=== PATIENT | male | born 2000 | race Caucasian/White ===

== ENCOUNTER 2019-08-01 18:08 | Emergency (ER) | payer OTHER ==
[2019-08-01 18:15] VITALS: BP 134/79
--- NOTE | 2019-08-01 18:22 | ER Document Report ---
ED Skin Rash/Insect Bite/Abscs - General Chief Complaint: Rash Stated Complaint: RASH ON GROIN AREA Time Seen by Provider: 08/01/19 18:17 Mode of Arrival: Ambulatory Information source: Patient Notes: 19-year-old male presented to ED for complaint of rash to his penis and groin. He states it started 2 days ago. He states it itches no pain at this time. He states he has had unprotected sex with multiple people. We have given him instructions on safe sex at this time. - HPI Patient complains to provider of: Skin rash/lesion Onset: Other - 2 days Onset/Duration: Gradual Quality of pain: No pain, Other - itchy Severity: None Pain Level: Denies Skin Character: Rash Quality of rash: Painful Identify cause: No Exacerbated by: Denies Relieved by: Denies Similar symptoms previously: No Recently seen / treated by doctor: No - Related Data Allergies/Adverse Reactions: iodine Allergy (Verified 08/01/19 18:17) Past Medical History - General Information source: Patient - Social History Smoking Status: Current Every Day Smoker Cigarette use (# per day): Yes - ppd Smoking Education Provided: Yes - 4 min Frequency of alcohol use: None 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 Family History: Reviewed & Not Pertinent Patient has suicidal ideation: No Patient has homicidal ideation: No - Past Medical History Cardiac Medical History: Reports: None Pulmonary Medical History: Reports: None EENT Medical History: Reports: None Neurological Medical History: Reports: None Endocrine Medical History: Reports: None Renal/ Medical History: Reports: None Malignancy Medical History: Reports None GI Medical History: Reports: None Musculoskeletal Medical History: Reports Hx Musculoskeletal Trauma Skin Medical History: Reports None Psychiatric Medical History: Reports: None Traumatic Medical History: Reports: Hx Fractures - Tibia right Infectious Medical History: Reports: None Past Surgical History: Reports: Hx Genitourinary Surgery - circumcision, Hx Orthopedic Surgery - Tibial fracture repair right, Other - Eye surgery - Immunizations Immunizations up to date: Yes Hx Diphtheria, Pertussis, Tetanus Vaccination: Yes Review of Systems - Review of Systems Constitutional: No symptoms reported EENT: No symptoms reported Cardiovascular: No symptoms reported Respiratory: No symptoms reported Gastrointestinal: No symptoms reported Genitourinary: No symptoms reported Male Genitourinary: No symptoms reported Musculoskeletal: No symptoms reported Skin: No symptoms reported, Rash - penis Hematologic/Lymphatic: No symptoms reported Neurological/Psychological: No symptoms reported Physical Exam - Vital signs Vitals: Temp Pulse Resp BP Pulse Ox 97.5 F 69 14 134/79 H 98 08/01/19 18:13 08/01/19 18:13 08/01/19 18:13 08/01/19 18:13 08/01/19 18:13 Interpretation: Normal - General General appearance: Appears well, Alert - HEENT Head: Normocephalic, Atraumatic Eyes: Normal Pupils: PERRL - Respiratory Respiratory status: No respiratory distress Chest status: Nontender Breath sounds: Normal Chest palpation: Normal - Cardiovascular Rhythm: Regular Heart sounds: Normal auscultation Murmur: No - Abdominal Inspection: Normal Distension: No distension Bowel sounds: Normal Tenderness: Nontender Organomegaly: No organomegaly - Back Back: Normal, Nontender - Extremities General upper extremity: Normal inspection, Nontender, Normal color, Normal ROM, Normal temperature General lower extremity: Normal inspection, Nontender, Normal color, Normal ROM, Normal temperature, Normal weight bearing. No: Sabra's sign - Neurological Neuro grossly intact: Yes Cognition: Normal Orientation: AAOx4 Charlemont Coma Scale Eye Opening: Spontaneous Charlemont Coma Scale Verbal: Oriented Michael Coma Scale Motor: Obeys Commands Michael Coma Scale Total: 15 Speech: Normal Motor strength normal: LUE, RUE, LLE, RLE Sensory: Normal - Psychological Associated symptoms: Normal affect, Normal mood - Skin Skin Temperature: Warm Skin Moisture: Dry Skin Color: Normal Skin irregularity: Rash Location of irregularity: Other - penis and groin Character of irregularity: Maculopapular Irregularity with: Other - itchy. negative: Tenderness Course - Re-evaluation Re-evalutation: 08/01/19 18:[address] Roberts, he recommended Lotrisone cream and follow-up with the health department. These instructions were given to the patient and patient was instructed to follow-up with his BAS or the health department. Patient verbalized understanding agreement with treatment plan. - Vital Signs Vital signs: Temp Pulse Resp BP Pulse Ox 97.5 F 69 14 134/79 H 98 08/01/19 18:18 08/01/19 18:13 08/01/19 18:18 08/01/19 18:13 08/01/19 18:18 Discharge - Discharge Clinical Impression: non painful rash to penis Condition: Stable Disposition: HOME, SELF-CARE Instructions: [facility] Additional Instructions: You have a non-painful rash to your penis. Clean the area well with soap rinse well pat dry and then apply the Prescriptions: Clotrimazole/Betamethasone Dip [Lotrisone Cream 15 gm] 1 applic TP BID #2 tube Forms: Elevated Blood Pressure, Smoking Cessation Education
== END 2019-08-01 18:30 | disposition home or self-care (01) ==
LOC: ER 18:08
DX: R21 Rash and other nonspecific skin eruption (principal); F17.210 Nicotine dependence, cigarettes, uncomplicated
CPT/HCPCS: 82962; 99283; 99406